=== PATIENT | male | born 1995 | race Caucasian/White ===

== ENCOUNTER 2020-06-27 01:30 | Emergency (ER) | payer OTHER ==
[~2020-06-27] VITALS: Ht 193 cm; Wt 127.0 kg
[2020-06-27 01:36] VITALS: BP 142/88
--- NOTE | 2020-06-27 01:47 | NUR ---
BIBA TO BED 5
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
--- NOTE | 2020-06-27 01:57 | NUR ---
ERMD AT BEDSIDE
[2020-06-27] MEDS ORDERED: ACET-8386 PO (03:36)
[2020-06-27 03:47] VITALS: BP 142/88
--- NOTE | 2020-06-27 03:48 | NUR ---
Patient discharged with v/s stable. Written and verbal after care instructions given and explained. Patient alert, oriented and verbalized understanding of instructions. Ambulatory with steady gait. All questions addressed prior to discharge. ID band removed. Patient advised to follow up with PMD. Rx of HYDROCODONE given. Patient educated on indication of medication including possible reaction and side effects. Opportunity to ask questions provided and answered. BELONGINGS RETURNED FROM SECURITY. SHORT BLADE.
== END 2020-06-27 03:47 | disposition home or self-care (01) ==
LOC: MED 01:30
DX: M54.2 Cervicalgia (principal); V98.8XXA Other specified transport accidents, initial encounter; Y93.89 Activity, other specified; Y92.89 Other specified places as the place of occurrence of the external cause; Y99.8 Other external cause status
CPT/HCPCS: 72125; 99284